=== PATIENT | female | born 1995 | race Caucasian/White ===

== ENCOUNTER 2019-11-10 15:38 | Emergency (ER) | payer MEDICAID, OTHER ==
[2019-11-10 19:06] LABS: BILIRUBIN,URINE NEGATIVE (NEGATIVE); GLUCOSE, URINE (UA) NEGATIVE (NEGATIVE); KETONES,URINE (UA) NEGATIVE (NEGATIVE); LEUKOCYTE ESTERASE, URINE NEGATIVE (NEGATIVE); NITRITE,URINE NEGATIVE (NEGATIVE); OCCULT BLOOD,URINE LARGE (NEGATIVE); PROTEIN,URINE NEGATIVE (NEGATIVE); UROBILINOGEN,URINE 0.2 (NORMAL) E.U./dL (NORMAL)
[2019-11-10 19:12] LABS: CLARITY,URINE CLOUDY (CLEAR)
[2019-11-10 19:13] LABS: BACTERIA,URINE Rare /HPF (None Seen); RBC,URINE TNTC /HPF (0-5); SQUAMOUS EPITHELIAL CELL,UR RARE Squamous (<= Few)
[2019-11-10] MEDS ORDERED: ONDANSETRON ODT 4 MG TABLET TL STA (19:21)
[2019-11-10] MEDS ORDERED: IBUPROFEN 800 MG TABLET PO STA (19:21)
--- NOTE | 2019-11-10 20:23 | CT Report ---
Reason: flank pain (L), hematuria Procedure Date: 11/10/2019 Accession Number: [id number] / [id number] Procedure: CT - Abdomen/Pelvis WO CPT Code: Final Report FULL RESULT: EXAM: CT ABDOMEN AND PELVIS (CT KUB) EXAM DATE: 11/10/2019 08:02 PM. CLINICAL HISTORY: Flank pain (L), hematuria. COMPARISONS: None. TECHNIQUE: Routine axial helical CT imaging was performed through the abdomen and pelvis without IV contrast. Reconstructions: Coronal and sagittal. In accordance with CT protocol optimization, one or more of the following dose reduction techniques were utilized for this exam: automated exposure control, adjustment of mA and/or KV based on patient size, or use of iterative reconstructive technique. FINDINGS: Lung Bases: Unremarkable. Right Kidney/Ureter: No stones, hydronephrosis, or hydroureter. No perinephric fat stranding. Left Kidney/Ureter: No stones, hydronephrosis, or hydroureter. No perinephric fat stranding. Other Solid Organs: Noncontrast images of the solid organs are grossly unremarkable. Gallbladder/Bile Ducts: Unremarkable. Peritoneal Cavity: Unopacified stomach and small bowel are nondistended. The appendix is normal. There is a small amount of formed stool in the colon. There is no focal pericolonic fat stranding. There is no lymphadenopathy, ascites, or pneumoperitoneum. Pelvic Organs: Small volume bladder without stones. Uterus unremarkable. No adnexal mass is identified. Vasculature: Unremarkable. Other: section scar. Bones are unremarkable. IMPRESSION: No urinary tract stones or obstruction. No findings are identified to explain left-sided pain or hematuria. RADIA
--- NOTE | 2019-11-10 20:34 | ED Physician Documentation ---
History of Present Illness - Stated complaint Stated Complaint: FEVER,ABD PX,BANDA - Chief complaint Chief Complaint: Fever - History obtained from History obtained from: Patient - Additonal information Additional information: Patient comes emergency department complaining of lower abdominal pain, cramping, body aches, and mild nausea.She states that she has not had any actual vomiting. No diarrhea. She states that she has not had any chest pain, shortness of breath, sore throat, or rhinorrhea. The patient has a history of ovarian cysts, and states the pain feels similar. She denies any vaginal discharge that is unusual. No bleeding between periods. She states that she is otherwise fairly healthy.She has not been running any fevers. She is not known to be . Patient does not have a new sexual partner. Review of Systems Ten Systems: 10 systems reviewed and negative Constitutional: reports: Myalgias Eyes: reports: Reviewed and negative Ears: reports: Reviewed and negative Nose: reports: Reviewed and negative Throat: reports: Reviewed and negative Cardiac: reports: Reviewed and negative Respiratory: reports: Reviewed and negative GI: reports: Abdominal Pain, Nausea : reports: Reviewed and negative Skin: reports: Reviewed and negative Musculoskeletal: reports: Reviewed and negative Neurologic: reports: Reviewed and negative Psychiatric: reports: Reviewed and negative Endocrine: reports: Reviewed and negative Immunocompromised: reports: Reviewed and negative PD PAST MEDICAL HISTORY - Past Medical History Respiratory: Asthma - Past Surgical History 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, 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 - Present Medications Home Medications: Ambulatory Orders Medication Instructions Recorded Confirmed traMADol [Ultram] 25 mg PO Q4-6H 3 Days #12 tablet 11/10/19 - Allergies Allergies/Adverse Reactions: Allergies Allergy/AdvReac Type Severity Reaction Status Date / Time cetirizine [From Zyrte] AdvReac Nausea Verified 11/10/19 15:45 - Social History Does the pt smoke?: No Smoking Status: Never smoker Does the pt drink ETOH?: Yes ETOH Use: Wine Substance Use and Type: Marijuana - Immunizations Immunizations are current?: Yes PD ED PE NORMAL - Vitals Vital signs reviewed: Yes - General General: Alert and oriented X 3, No acute distress - HEENT HEENT: PERRL - Neck Neck: Supple, no meningeal sign - Cardiac Cardiac: RRR, No murmur - Respiratory Respiratory: Clear bilaterally - Abdomen Abdomen: Soft, Non distended, Other (Mild, suprapubic and left lower quadrant areas.) - Derm Derm: Warm and dry - Extremities Extremities: No deformity - Neuro Neuro: Alert and oriented X 3 - Psych Psych: Normal mood, Normal affect Results - Vitals Vitals: Oxygen O2 Source Room air - Labs Labs: Laboratory Tests 11/10/19 11/10/19 15:50 18:45 Urine Color YELLOW Urine Clarity CLOUDY Urine pH 6.0 Ur Specific [place] 1.025 Urine Protein NEGATIVE Urine Glucose (UA) NEGATIVE Urine Ketones NEGATIVE Urine Occult Blood LARGE H Urine Nitrite NEGATIVE Urine Bilirubin NEGATIVE Urine Urobilinogen 0.2 (NORMAL) Ur Leukocyte Esterase NEGATIVE Urine RBC TNTC H Urine WBC 0-3 Ur Squamous Epith Cells RARE Squamous Urine Bacteria Rare Ur Microscopic Review INDICATED Influenza A (Rapid) Negative Influenza B (Rapid) Negative - Rads (name of study) CT abd/pelvis Radiology: Final report received, EMP read indepedently, See rad report PD MEDICAL DECISION MAKING - ED course Complexity details: reviewed old records, reviewed results, re-evaluated patient, considered differential, d/w patient ED course: Patient was worked up in the emergency department with labs, urinalysis, and CT scan of the abdomen and pelvis. Work-up was negative. The patient had very mild tenderness on exam, and did not have any pelvic symptoms. I discussed with her that she does not have any evidence of a serious or emergent cause of her symptoms. We have discussed home management of the symptoms, as well as the usual indications for return and for follow-up. Departure - Departure Disposition: 01 Home, Self Care Clinical Impression: Abdominal pain Qualifiers: Abdominal location: left lower quadrant Qualified Code(s): R10.32 - Left lower quadrant pain Condition: Fair Instructions: ED Abdominal Pain Unkn Cause Prescriptions: traMADol [Ultram] 25 mg PO Q4-6H 3 Days #12 tablet Comments: Your urinalysis showed only blood, and the CT scan of the abdomen and pelvis did not show any kidney stones or other concerning findings. Your influenza test is negative. It is not clear why you continue to have left pelvic and abdominal pain, except for the finding of ovarian cysts. [place]. You may use the medication prescribed as needed for your discomfort, along with ibuprofen and Tylenol. Discharge Date/Time: 11/10/19 20:42
[2019-11-10 20:41] VITALS: BP 103/71
== END 2019-11-10 20:42 | disposition home or self-care (01) ==
LOC: ED 15:38
DX: R10.32 Left lower quadrant pain (principal); R10.2 Pelvic and perineal pain; R11.0 Nausea; R31.9 Hematuria, unspecified; Z87.42 Personal history of other diseases of the female genital tract
CPT/HCPCS: 74176; 81001; 87275; 87276; 99283; 99284; A9270; Q0162; 81003

== ENCOUNTER 2021-04-26 20:57 | Emergency (ER) | payer OTHER ==
--- NOTE | 2021-04-26 21:59 | ED Physician Documentation ---
PD HPI HEADACHE - Stated complaint Stated Complaint: BANDA - Chief complaint Chief Complaint: Neuro - History obtained from History obtained from: Patient - History of Present Illness Timing - onset: Today Timing - onset during: Light activity Timing - duration: Days (1) Timing - details: Gradual onset Worst headache ever?: No: Worst headache ever? Location: Front, Right Quality: Throbbing, Aching Associated symptoms: Nausea. No: Fever, Stiff neck, Weakness, Numbness Improved by: Rest, Dark room. No: Meds (tried Tylenol at home) Worsened by: Light, Noise Contributing factors: No: Recent illness, Trauma Similar symptoms before: Diagnosis (Had migraines initially as a child but has not had one for many years. This does feel similar. No recent illness, injury. Had COVid vaccine 2 months ago without problems.) Recently seen: Not recently seen Review of Systems Constitutional: denies: Fever, Chills Eyes: reports: Photophobia, Other (describes some visual blurring/wavy but no scotomata.) Nose: denies: Rhinorrhea / runny nose, Congestion, Sinus pressure / pain Throat: denies: Sore throat Respiratory: denies: Cough GI: reports: Nausea. denies: Abdominal Pain, Vomiting, Diarrhea Skin: denies: Rash, Lesions Neurologic: reports: Headache. 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 - Present Medications Home Medications: Ambulatory Orders Medication Instructions Recorded Confirmed traMADol [Ultram] 25 mg PO Q4-6H 3 Days #12 tablet 11/10/19 Ondansetron Odt [Zofran] 4 mg TL Q6H PRN #10 tablet 04/26/21 Sumatriptan Succinate [Imitrex] 50 mg PO Q6H PRN #5 tablet 04/26/21 - Allergies Allergies/Adverse Reactions: Allergies Allergy/AdvReac Type Severity Reaction Status Date / Time cetirizine [From Zyrtec] AdvReac Nausea Verified 04/26/21 21:04 - Social History Does the pt smoke?: No Smoking Status: Never smoker Does the pt drink ETOH?: Yes - Immunizations Immunizations are current?: Yes PD ED PE NORMAL - Vitals Vital signs reviewed: Yes - General General: Alert and oriented X 3, Well developed/nourished, Other (wearing dark sunglasses. Seems uncomfortable. Pleasant and conversant. ) - HEENT HEENT: Atraumatic, PERRL, EOMI (light sensitive), Ears normal, Pharynx benign - Neck Neck: Supple, no meningeal sign, No adenopathy - Cardiac Cardiac: RRR, No murmur - Derm Derm: Normal color, Warm and dry - Neuro Neuro: Alert and oriented X 3, puppet master 2-12 intact, No motor deficit, No sensory deficit, Normal speech Results - Vitals Vitals: Oxygen O2 Source Room air PD MEDICAL DECISION MAKING - ED course Complexity details: re-evaluated patient (improved with typical "migraine cocktail". ), considered differential (sounds like migraine. ), d/w patient Departure - Departure Disposition: 01 Home, Self Care Clinical Impression: Migraine headache Qualifiers: Migraine type: without aura Status migrainosus presence: without status migrainosus Intractability: not intractable Qualified Code(s): G43.009 - Migraine without aura, not intractable, without status migrainosus Condition: Stable Record reviewed to determine appropriate education?: Yes Instructions: ED Headache Migraine Prescriptions: Sumatriptan Succinate [Imitrex] 50 mg PO Q6H PRN #5 tablet PRN Reason: Migraine Ondansetron Odt [Zofran] 4 mg TL Q6H PRN #10 tablet PRN Reason: Nausea / Vomiting Comments: This seems like a migraine headache and did improve with typical migraine medications. See how you do in the near future if you have any further similar headaches. If you get a recurrent similar rash migraine, you can try combination of ondansetron for nausea along with some ibuprofen or Aleve and then a migraine specific medicine called sumatriptan. See if this alleviates the headache within 20 to 30 minutes. If you have a recurring frequency of migraines, follow-up with your primary care for more focus on preventive medicines. Discharge Date/Time: 04/26/21 23:30
[2021-04-26] MEDS ORDERED: METOCLOPRAMIDE 10 MG/2 ML VIAL IVP STA (22:12)
[2021-04-26] MEDS ORDERED: KETOROLAC 30 MG/ML VIAL IVP STA (22:12)
[2021-04-26] MEDS ORDERED: SODIUM CHLORIDE 0.9% 1,000 ML IV STA (22:12)
[2021-04-26 23:27] VITALS: BP 111/68
== END 2021-04-26 23:30 | disposition home or self-care (01) ==
LOC: ED 20:57
DX: G43.009 Migraine without aura, not intractable, without status migrainosus (principal)
CPT/HCPCS: 96374; 99283; 99284; J2765

== ENCOUNTER 2021-04-30 16:47 | Emergency (ER) | payer OTHER ==
--- NOTE | 2021-04-30 17:31 | ED Physician Documentation ---
PD HPI HEADACHE - Stated complaint Stated Complaint: MIGRAINE - Chief complaint Chief Complaint: Neuro - History obtained from History obtained from: Patient - Additional information Additional information: 25-year-old woman presents with 5 days of bitemporal headache radiating to the occiput associated with light and sound sensitivity. She feels like her neck is tight but not stiff per se. No associated fevers. No history of migraines although had headaches as a kid but she would really classify them as a migraine. She was seen here a few days ago and got mostly relieved with a migraine cocktail but the next day it came back. It is gradual in onset. She was nauseous on the way here but is not currently. 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 - Present Medications Home Medications: Ambulatory Orders Medication Instructions Recorded Confirmed traMADol [Ultram] 25 mg PO Q4-6H 3 Days #12 tablet 11/10/19 Ondansetron Odt [Zofran] 4 mg TL Q6H PRN #10 tablet 04/26/21 Sumatriptan Succinate [Imitrex] 50 mg PO Q6H PRN #5 tablet 04/26/21 - Allergies Allergies/Adverse Reactions: Allergies Allergy/AdvReac Type Severity Reaction Status Date / Time cetirizine [From Zyrte] AdvReac Nausea Verified 04/30/21 17:01 - Social History Does the pt smoke?: No Smoking Status: Never smoker Does the pt drink ETOH?: Yes - Immunizations Immunizations are current?: Yes PD ED PE NORMAL - Vitals Vital signs reviewed: Yes - General General: Alert and oriented X 3, No acute distress - HEENT HEENT: PERRL, EOMI, Other (She is photophobic and wearing sunglasses) - Neck Neck: Supple, no meningeal sign, No bony TTP - Neuro Neuro: Alert and oriented X 3, Normal speech Results - Vitals Vitals: Vital Signs - 24 hr 04/30/21 04/30/21 16:57 18:45 Temperature 36.7 C Heart Rate 74 58 L Respiratory 16 16 Rate Blood Pressure 123/69 96/55 L O2 Saturation 97 98 Oxygen O2 Source Room air - Labs Labs: Laboratory Tests 04/30/21 04/30/21 17:55 17:55 WBC 7.3 RBC 4.73 Hgb 13.9 Hct 41.3 MCV 87.3 MCH 29.4 MCHC 33.7 RDW 12.0 Plt Count 252 MPV 9.7 Neut # (Auto) 3.7 Lymph # (Auto) 2.9 Rogers # (Auto) 0.4 Eos # (Auto) 0.3 Baso # (Auto) 0.0 Absolute Nucleated RBC 0.00 Nucleated RBC % 0.0 Sodium 140 Potassium 3.7 Chloride 104 Carbon Dioxide 27 Anion Gap 9.0 BUN 15 Creatinine 0.7 Estimated GFR (MDRD) 100 Glucose 109 H Calcium 9.7 PD MEDICAL DECISION MAKING - ED course ED course: Initially to me it sounded more like a tension headache than a migraine, trigger point injections were done over the occipital nerves bilaterally with 2 mL of lidocaine with epinephrine on either side which actually resulted in increased pain. 25-year-old with headache, no clinical evidence of meningitis. Given the persistent nature she did have cranial imaging done which was negative. Had significant improvement albeit only down to a 6 after Reglan and Toradol IV. This was followed by Haldol IV with complete improvement but a significant akathisia which resolved after Benadryl. Departure - Departure Disposition: 01 Home, Self Care Clinical Impression: Migraine headache Qualifiers: Migraine type: unspecified Status migrainosus presence: with status migrainosus Intractability: not intractable Qualified Code(s): G43.901 - Migraine, unspecified, not intractable, with status migrainosus Condition: Good Record reviewed to determine appropriate education?: Yes Instructions: ED Headache Migraine Comments: Your migraine headache was aborted today with Haldol, but as you now know you had what we call an akathisia reaction with this. This was aborted with Benadryl. My suggestion, if you were to need emergency care for migraines in the future, Haldol is a good drug but you should be pretreated with Benadryl. Return as needed for new or worsening symptoms. Follow-up with your primary care physician.
[2021-04-30] MEDS ORDERED: SODIUM CHLORIDE 0.9% 1,000 ML IV STA (17:47)
[2021-04-30] MEDS ORDERED: METOCLOPRAMIDE 10 MG/2 ML VIAL IVP STA (17:47)
[2021-04-30] MEDS ORDERED: KETOROLAC 30 MG/ML VIAL IVP STA (17:47)
[2021-04-30 18:04] LABS: BASOPHILS % (AUTO) 0.5 %; EOSINOPHILS # (AUTO) 0.3 10^3/uL (0.0-0.7); EOSINOPHILS % (AUTO) 3.5 %; HCT - HEMATOCRIT 41.3 % (37.0-47.0); HGB - HEMOGLOBIN 13.9 g/dL (12.0-16.0); LYMPHOCYTES # (AUTO) 2.9 10^3/uL (1.5-3.5); LYMPHOCYTES % (AUTO) 39.2 %; MEAN CORPUSCULAR HEMOGLOBIN 29.4 pg (27.0-31.0); MEAN CORPUSCULAR HGB CONC 33.7 g/dL (32.0-36.0); MEAN CORPUSCULAR VOLUME 87.3 fL (81.0-99.0); MEAN PLATELET VOLUME 9.7 fL (7.9-10.8); MONOCYTES # (AUTO) 0.4 10^3/uL (0.0-1.0); MONOCYTES % (AUTO) 5.7 %; NEUTROPHILS # (AUTO) 3.7 10^3/uL (1.5-6.6); NEUTROPHILS % (AUTO) 50.8 %; PLT - PLATELET COUNT 252 10^3/uL (130-450); RED BLOOD COUNT 4.73 10^6/uL (4.20-5.40); WHITE BLOOD COUNT 7.3 x10^3/uL (4.8-10.8)
[2021-04-30 18:16] LABS: CALCIUM 9.7 mg/dL (8.5-10.3); CREATININE 0.7 mg/dL (0.4-1.0); POTASSIUM 3.7 mmol/L (3.5-5.0)
--- NOTE | 2021-04-30 18:34 | CT Report ---
PROCEDURE: HEAD WO INDICATIONS: headaches TECHNIQUE: Noncontrast 4.5 mm thick angled axial sections acquired from the foramen magnum to the vertex. For r adiation dose reduction, the following was used: automated exposure control, adjustment of mA and/or kV according to patient size. COMPARISON: None. FINDINGS: Image quality: There is streak artifact seen through the skull base. CSF spaces: Basal cisterns are patent. No extra-axial fluid collections. Ventricles are normal in size and shape. Brain: No midline shift. No intracranial masses or hemorrhage. Choudhury-white matter interface is norm al. No Chiari I malformation can be seen. Skull and face: Calvarium and visualized facial bones are intact, without suspicious lesions. Sinuses: Visualized sinuses and mastoids are clear. Bilateral mariann bullosa are incidentally noted . IMPRESSION: No acute intracranial hemorrhage can be seen. A cause of headache cannot be seen on these images. Reviewed by: Chad Multani MD on 04/30/2021 5:33 PM KAYLYN Approved by: Chad Multani MD on 04/30/2021 5:33 PM AKATILIO Station ID: [id number]
[2021-04-30] MEDS ORDERED: DEXAMETHASONE 10 MG/ML VIAL IVP STA (18:39)
[2021-04-30] MEDS ORDERED: HALOPERIDOL 5 MG/ML VIAL IVP ONE (18:39)
[2021-04-30] MEDS ORDERED: diphenhydrAMINE INJ 50 MG/ML VIAL IVP STA (19:13)
[2021-04-30 20:28] VITALS: BP 123/68
== END 2021-04-30 20:39 | disposition home or self-care (01) ==
LOC: ED 16:47
DX: G43.901 Migraine, unspecified, not intractable, with status migrainosus (principal)
CPT/HCPCS: 36415; 70450; 80048; 85025; 96374; 96375; 99283; 99285; J1200; J2765

== ENCOUNTER 2021-07-07 11:49 | Emergency (ER) | payer OTHER ==
--- NOTE | 2021-07-07 13:38 | ED Physician Documentation ---
PD HPI ABD PAIN - Stated complaint Stated Complaint: FEMALE - Chief complaint Chief Complaint: Abd Pain - History obtained from History obtained from: Patient - Additional information Additional information: with history of twin gestation had a normal menses or at least fairly normal starting on June 15. She has a history of tubal ligation/resection. For the last 9 days or so she has had heavier and brighter red blood than normal associated with moodiness consistent with prior . Took 2 tests at home, one was positive one was negative. 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 - Present Medications Home Medications: Ambulatory Orders Medication Instructions Recorded Confirmed traMADol [Ultram] 25 mg PO Q4-6H 3 Days #12 tablet 11/10/19 Ondansetron Odt [Zofran] 4 mg TL Q6H PRN #10 tablet 04/26/21 Sumatriptan Succinate [Imitrex] 50 mg PO Q6H PRN #5 tablet 04/26/21 Norgestimate-Ethinyl Estradiol 1 each PO TID #1 packet 07/07/21 [Ortho Tri-Cyclen 28 Tablet] - Allergies Allergies/Adverse Reactions: Allergies Allergy/AdvReac Type Severity Reaction Status Date / Time cetirizine [From Zyrte] AdvReac Nausea Verified 07/07/21 12:01 - Social History Does the pt smoke?: No Smoking Status: Never smoker Does the pt drink ETOH?: Yes - Immunizations Immunizations are current?: Yes Results - Vitals Vitals: Vital Signs - 24 hr 07/07/21 07/07/21 11:55 15:00 Temperature 36.4 C L Heart Rate 66 70 Respiratory 16 18 Rate Blood Pressure 118/76 116/60 O2 Saturation 100 99 Oxygen O2 Source Room air - Labs Labs: Laboratory Tests 07/07/21 07/07/21 07/07/21 13:38 14:14 14:14 WBC 7.2 RBC 4.41 Hgb 13.2 Hct 38.9 MCV 88.2 MCH 29.9 MCHC 33.9 RDW 13.0 Plt Count 242 MPV 9.6 Neut # (Auto) 4.2 Lymph # (Auto) 2.3 [place] # (Auto) 0.4 Eos # (Auto) 0.3 Baso # (Auto) 0.0 Absolute Nucleated RBC 0.00 Nucleated RBC % 0.0 Sodium 136 Potassium 4.1 Chloride 103 Carbon Dioxide 25 Anion Gap 8.0 BUN 11 Creatinine 0.7 Estimated GFR (MDRD) 100 Glucose 96 Calcium 9.2 HCG, Quant Urine Color RED/BLOODY Urine Clarity BLOODY Urine pH 7.5 Ur Specific [place] 1.025 Urine Protein 30 H Urine Glucose (UA) NEGATIVE Urine Ketones NEGATIVE Urine Occult Blood LARGE H Urine Nitrite NEGATIVE Urine Bilirubin NEGATIVE Urine Urobilinogen 0.2 (NORMAL) Ur Leukocyte Esterase NEGATIVE Urine RBC TNTC H Urine WBC 0-3 Ur Squamous Epith Cells NONE SEEN Urine Bacteria None Seen Ur Microscopic Review INDICATED Urine Culture Comments NOT INDICATED Urine HCG, Qual NEGATIVE 07/07/21 14:14 WBC RBC Hgb Hct MCV MCH MCHC RDW Plt Count MPV Neut # (Auto) Lymph # (Auto) [place] # (Auto) Eos # (Auto) Baso # (Auto) Absolute Nucleated RBC Nucleated RBC % Sodium Potassium Chloride Carbon Dioxide Anion Gap BUN Creatinine Estimated GFR (MDRD) Glucose Calcium HCG, Quant < 0.60 Urine Color Urine Clarity Urine pH Ur Specific [place] Urine Protein Urine Glucose (UA) Urine Ketones Urine Occult Blood Urine Nitrite Urine Bilirubin Urine Urobilinogen Ur Leukocyte Esterase Urine RBC Urine WBC Ur Squamous Epith Cells Urine Bacteria Ur Microscopic Review Urine Culture Comments Urine HCG, Qual PD MEDICAL DECISION MAKING - ED course ED course: 26-year-old woman with irregular and heavy vaginal bleeding, hemodynamically normal with reassuring H&H and both blood and urine tests are negative here ruling out an ectopic. She is started on high-dose control. Departure - Departure Disposition: 01 Home, Self Care Clinical Impression: Vaginal bleeding Condition: Good Record reviewed to determine appropriate education?: Yes Instructions: ED Bleed Irregular Vaginal Prescriptions: Norgestimate-Ethinyl Estradiol [Ortho Tri-Cyclen 28 Tablet] 1 each PO TID #1 packet Comments: We ruled out today, return if you worsen, otherwise the control and high-dose should stop the bleeding. Follow-up with your OB your family physician next week. Discharge Date/Time: 07/07/21 15:01
[2021-07-07 14:17] LABS: BILIRUBIN,URINE NEGATIVE (NEGATIVE); GLUCOSE, URINE (UA) NEGATIVE (NEGATIVE); KETONES,URINE (UA) NEGATIVE (NEGATIVE); LEUKOCYTE ESTERASE, URINE NEGATIVE (NEGATIVE); NITRITE,URINE NEGATIVE (NEGATIVE); OCCULT BLOOD,URINE LARGE (NEGATIVE); PH,URINE 7.5 PH (5.0-7.5); PROTEIN,URINE 30 mg/dL (NEGATIVE); UROBILINOGEN,URINE 0.2 (NORMAL) E.U./dL (NORMAL)
[2021-07-07 14:21] LABS: CLARITY,URINE BLOODY (CLEAR); HCG UR QUAL NEGATIVE
[2021-07-07 14:22] LABS: BASOPHILS % (AUTO) 0.6 %; EOSINOPHILS # (AUTO) 0.3 10^3/uL (0.0-0.7); HCT - HEMATOCRIT 38.9 % (37.0-47.0); HGB - HEMOGLOBIN 13.2 g/dL (12.0-16.0); LYMPHOCYTES # (AUTO) 2.3 10^3/uL (1.5-3.5); LYMPHOCYTES % (AUTO) 31.9 %; MEAN CORPUSCULAR HEMOGLOBIN 29.9 pg (27.0-31.0); MEAN CORPUSCULAR HGB CONC 33.9 g/dL (32.0-36.0); MEAN CORPUSCULAR VOLUME 88.2 fL (81.0-99.0); MEAN PLATELET VOLUME 9.6 fL (7.9-10.8); MONOCYTES # (AUTO) 0.4 10^3/uL (0.0-1.0); MONOCYTES % (AUTO) 6.1 %; NEUTROPHILS # (AUTO) 4.2 10^3/uL (1.5-6.6); NEUTROPHILS % (AUTO) 57.3 %; PLT - PLATELET COUNT 242 10^3/uL (130-450); RED BLOOD COUNT 4.41 10^6/uL (4.20-5.40); WHITE BLOOD COUNT 7.2 x10^3/uL (4.8-10.8)
[2021-07-07 14:30] LABS: CALCIUM 9.2 mg/dL (8.5-10.3); CREATININE 0.7 mg/dL (0.4-1.0); POTASSIUM 4.1 mmol/L (3.5-5.0)
[2021-07-07 14:33] LABS: BACTERIA,URINE None Seen /HPF (None Seen); RBC,URINE TNTC /HPF (0-5); SQUAMOUS EPITHELIAL CELL,UR NONE SEEN (<= Few); WBC,URINE 0-3 /HPF (0-5)
[2021-07-07 15:01] VITALS: BP 116/60
== END 2021-07-07 15:01 | disposition home or self-care (01) ==
LOC: ED 11:49
DX: N93.9 Abnormal uterine and vaginal bleeding, unspecified (principal)
CPT/HCPCS: 36415; 80048; 81001; 81003; 81025; 84702; 85025; 87086; 99283

== ENCOUNTER 2021-08-24 15:00 | Outpatient (CLI) | payer OTHER ==
[2021-08-24 18:03] LABS: BASOPHILS % (AUTO) 0.1 %; EOSINOPHILS # (AUTO) 0.2 10^3/uL (0.0-0.7); EOSINOPHILS % (AUTO) 2.6 %; HCT - HEMATOCRIT 40.7 % (37.0-47.0); HGB - HEMOGLOBIN 13.5 g/dL (12.0-16.0); LYMPHOCYTES # (AUTO) 2.1 10^3/uL (1.5-3.5); LYMPHOCYTES % (AUTO) 25.2 %; MEAN CORPUSCULAR HEMOGLOBIN 28.8 pg (27.0-31.0); MEAN CORPUSCULAR HGB CONC 33.2 g/dL (32.0-36.0); MEAN PLATELET VOLUME 9.9 fL (7.9-10.8); MONOCYTES # (AUTO) 0.7 10^3/uL (0.0-1.0); MONOCYTES % (AUTO) 8.3 %; NEUTROPHILS # (AUTO) 5.2 10^3/uL (1.5-6.6); NEUTROPHILS % (AUTO) 63.6 %; PLT - PLATELET COUNT 249 10^3/uL (130-450); RED BLOOD COUNT 4.68 10^6/uL (4.20-5.40); RED CELL DISTRIBUTION WIDTH 12.4 % (12.0-15.0); WHITE BLOOD COUNT 8.2 x10^3/uL (4.8-10.8)
[2021-08-24 18:39] LABS: ALBUMIN 4.2 g/dL (3.2-5.5); ALBUMIN/GLOBULIN RATIO 1.4 (1.0-2.2); BILIRUBIN,TOTAL 0.3 mg/dL (0.2-1.0); CALCIUM 9.1 mg/dL (8.5-10.3); CREATININE 0.6 mg/dL (0.4-1.0); POTASSIUM 3.8 mmol/L (3.5-5.0); TOTAL PROTEIN 7.2 g/dL (6.7-8.2)
== END 2021-08-24 23:59 | disposition home or self-care (01) ==
LOC: LAB.N 15:00
PROVIDERS: ATTEND Family Medicine
DX: R11.2 Nausea with vomiting, unspecified (principal)
CPT/HCPCS: 36415; 80053; 83690; 85025